=== PATIENT | female | born 1990 | race Two or more races ===

== ENCOUNTER 2017-08-11 20:22 | Inpatient (IN) | payer BC ==
[2017-08-11 22:29] VITALS: BMI 21.6
[2017-08-11] MEDS ORDERED: Penicillin G Potassium 5 MU in Sodium Chloride 0.9% 50 ML IVPB ONE (22:31)
--- NOTE | 2017-08-11 23:37 | OBHP ---
Datetime: 08/11/2017 22:30 IP Adm Impression: Term, intrauterine ; No Active Labor; Ruptured Membranes IP Admit Plan: Admit to unit; Initiate labor protocol Admit Comment, IP Provider: CHIEF COMPLAINT: LOF HPI: 26 yo at 37.4 wks GA with EDC by lmp +: ROM, CTX, FM -: VB last U/S: 08/05/2017 last visit: 08/05/2017 GBS neg Pt shares of gush of clear fluid at 20:00 this evening; since then, she has experience continuous leaking of clear fluid per vagina. PNC: Dr. 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 Lungs: clear to auscultation bilaterally, no wheezing Abdomen: nontender, gravid CVA: negative Lower extremities: negative for pitting edema SSE/PELVIC EXN: Vaginal pooling of clear amniotic fluid seen; Cervix is 1 cm dilated; 50 % effaced at -3 stage Bed side u/s: vertex position MONITOR Variablity: moderate: 6-25 bpm ACC: 15x15 DECC: none FHR: 130 ASSESSMENT: 26 yo IUP at 37.4 wks with no obstetrics history ROM CTX PLAN: Admit to Labor and Delivery, CBC/Type and Screen/RPR, HIV, Intravenous access, Monitor ing, Monitor Labor progress, Discussion about her condition including labor, augmentation with cervid il, delivery, pain management, and care. AUNDREA PGY1 The patient was seen with the resident I agree with the notes. Patient for admission, Cervidil ind uction, adequate pelvis, vertex presentation, estimated weight 6 pounds Pelvic Type - PN: Adequate Extremities - PN: Normal Abdomen - PN: Normal Back - PN: Normal Breast - PN: Normal Lungs - PN: Normal Heart - PN: Normal Thyroid - PN: Normal Neurologic - PN: Normal HEENT - PN: Normal General - PN: Normal FHR - Baseline A Provider: 130 Amniotic Fluid Color, Provider: Clear Membranes, Provider: Ruptured Pool Provider: Positive Vital Signs Provider: Reviewed; Within Normal Limits IP Chief Complaint: Uterine contractions; Suspected ruptured membranes NICHD Variability Prov Fetus A: Moderate 6-25bpm NICHD Accel Fetus A IP Provider: [id number] FHR Category Provider Fetus A: Category I NICHD Decel Fetus A IP Provider: None Dilatation, Provider: 1 Effacement, Provider: 50 Station, Provider: -3 Genitourinary Exam: Normal DTRs - PN: Normal
[2017-08-12 01:02] LABS: BASO % 0.4 % (0.0-2.0); EOS # 0.1 K/uL (0.0-0.7); EOS % 0.6 % (0.0-4.0); HEMATOCRIT 32.4 % (34.0-47.0); LYMPH # 1.8 K/uL (1.0-4.3); LYMPH % 15.7 % (20.0-40.0); MEAN CELL VOLUME 85.3 fl (81.0-99.0); MEAN CORPUSCULAR HEMOGLOBIN 27.4 pg (27.0-31.0); MEAN CORPUSCULAR HGB CONC 32.2 g/dL (33.0-37.0); MEAN PLATELET VOLUME 8.6 fl (7.2-11.7); MONO % 8.6 % (0.0-10.0); NEUT # 8.6 K/uL (1.8-7.0); NEUT % 74.7 % (50.0-75.0); NRBC % 0.1 % (0.0-0.0); RED CELL DISTRIBUTION WIDTH 14.5 % (11.5-14.5); WHITE BLOOD COUNT 11.5 K/uL (4.8-10.8)
[2017-08-12] MEDS ORDERED: Nalbuphine 20 mg/ml Inj (1 ml) IVP PRN (02:56)
[2017-08-12 03:06] VITALS: O2SAT 98
[2017-08-12] MEDS: Lactated Ringer's 1,000 ML IV SCH ×3 (05:58→08:00)
[2017-08-12] MEDS ORDERED: Fentanyl/Bupivacaine HCl 250 ML EPI ONE (06:23)
[2017-08-12] MEDS ORDERED: Bupivacaine HCl 0.25% PF (10 ml) Inj ONE (06:23)
[2017-08-12] MEDS ORDERED: ePHEDrine 50 mg/ml Inj ONE (07:06)
[2017-08-12] MEDS ORDERED: Lidocaine 1% Inj (20ml) ONE (07:21)
[2017-08-12] MEDS ORDERED: Oxytocin 30 units/LR 500ML 30 U/500 ML BAG IV ONE (11:27)
[2017-08-12] MEDS ORDERED: Oxycodone/Acetaminophen 5/325 mg Tab PO PRN (13:25)
--- NOTE | 2017-08-12 13:36 | OBDS ---
DELIVERY PERSONNEL Anesthesiologist: Marques Almonte MD MATERNAL INFORMATION Delivery Anesthesia: Epidural Provider Comments: Pt pushed to deliver a viable male infant through clear fluid over a midline epis iotomy at 12:21pm. Apgars 6 and 8. Wt 5#12, 2610gms. Mouth and nares bulb-suctioned. Infant place d on mother's abdomen. Cord clamped and cut. Infant then placed on warmer w/ hoop coiler present. Placenta delivered spontaneously intact w/ a 3vc at 12:25pm. Second degree tear repaired w/ 0-v, 2- 0 rapide, 3-0v. Vaginal packing placed. Bladder was emptied w/ a red rubber catheter. It was then decided to place a abarca d/t vaginal packing. Rectum intact. EBL 250 mL LABOR SUMMARY EDC: 08/28/2017 00:00 No. Babies in Womb: 1 Attempted: No Labor Anesthesia: Epidural LABOR INFORMATION Reason for Induction: Not Applicable Onset of Labor: 08/11/2017 00:00 Complete Dilatation: 08/05/2017 07:02 Cervical Ripening Agents: Cervidil (Annotations: as per md order ) Oxytocin: Augmentation Group B Beta Strep: Negative Steroids Given: None Reason Steroids Not Administered: Not Applicable MEMBRANES Membranes Rupture Method: Spontaneous Rupture of Membranes: 08/11/2017 08:00 Amniotic Fluid Color: Clear Amniotic Fluid Amount: Moderate Amniotic Fluid Odor: Normal STAGES OF LABOR Stage 1 hrs: -136 Stage 1 min: -58 BABY A INFORMATION Method of Delivery: Vaginal Born in Route : No : N/A PRESENTATION/POSITION BABY A Presentation: Cephalic INFORMATION BABY A Gestational Age at Delivery: 37.0 Gestational Status: Term
--- NOTE | 2017-08-13 08:01 | OBPPN ---
Datetime: 08/13/2017 07:54 PP Pain Prov: Within normal limits PP Abdomen/Uterus Prov: Normal PP Lochia Prov: Normal PP Vulva/Perineum Prov: Normal PP Extremities Prov: Normal PP Progress Prov: Normal PP Comments Phys Exam Prov: Vaginal packing removed PP Impression Prov: Normal progression PP Plan Prov: Continue present management PP Progress Note Prov: PPD 1 s/p , doing well, breast feeding Vaginal packing removed, abarca to be removed this am Continue current management Vital Signs Provider PP: Reviewed
[2017-08-13] MEDS: Prenatal Multivit/Folic Acid/Iron Tab PO SCH (08:27)
[2017-08-13] MEDS ORDERED: Influenza Vaccine 18yr & older 0.5 ML/45 MCG SYR IM ONE (10:00)
[2017-08-13 19:26] LABS: HEMATOCRIT 28.8 % (34.0-47.0); MEAN CELL VOLUME 85.3 fl (81.0-99.0); MEAN CORPUSCULAR HEMOGLOBIN 28.3 pg (27.0-31.0); MEAN CORPUSCULAR HGB CONC 33.2 g/dL (33.0-37.0); RED CELL DISTRIBUTION WIDTH 14.5 % (11.5-14.5); WHITE BLOOD COUNT 15.7 K/uL (4.8-10.8)
--- NOTE | 2017-08-14 08:52 | OBPPN ---
Datetime: 08/14/2017 08:29 PP Pain Prov: Within normal limits PP Nausea Prov: Denies PP Flatus Prov: Yes PP Breasts Prov: Normal PP Heart Prov: Normal PP Lungs Prov: Normal PP Abdomen/Uterus Prov: Normal PP Lochia Prov: Normal PP Vulva/Perineum Prov: Normal PP CVA Tenderness Prov: Normal PP Extremities Prov: Normal PP Progress Prov: Normal PP Impression Prov: Normal progression PP Plan Prov: Discharge PP Progress Note Prov: Post day 2 Aneima asymtpomatic PLAN discharge and follow up in 6w Motrin PRN Vital Signs Provider PP: Reviewed; Within Normal Limits
--- NOTE | 2017-08-14 08:52 | OBDCSUM ---
Datetime: 08/14/2017 08:29 Discharged to, Provider: Home Follow up at, Provider: Andrew Disch Instr Activity: Normal activity Disch Instr Diet: Regular Discharge Instructions, Provider: Routine instructions given Discharge Diagnosis, Provider: Term Delivered Follow up in weeks, Provider: 6w Disch Referrals: None Contraception discussed, Prov: Yes Disch Activity Restrictions: No sexual activity; Nothing in vagina - Zeb, tampons, douche
[2017-08-14] MEDS: Prenatal Multivit/Folic Acid/Iron Tab PO SCH (10:12)
[2017-08-14 21:24] VITALS: BP 112/65; PULSE 98; RESP 18; TEMP 98
== END 2017-08-14 17:23 | disposition home or self-care (01) | DRG 775 ==
LOC: H.EROB2 20:22 → H.L&D 22:28 → H.OB/GYN 08-12 16:15
PROVIDERS: ADMIT Obstetrics & Gynecology; ATTEND Obstetrics & Gynecology
PROC: 0KQM0ZZ Repair Perineum Muscle, Open Approach (ICD-10-PCS; principal; 2017-08-11)
PROC: 10E0XZZ Delivery of Products of Conception, External Approach (ICD-10-PCS; 2017-08-11)
PROC: 4A0 Measurement and Monitoring, Physiological Systems, Measurement (ICD-10-PCS; 2017-08-11)
DX: O70.1 Second degree perineal laceration during delivery (principal); Z37.0 Single live birth; Z3A.37 37 weeks gestation of pregnancy